=== PATIENT | male | born 1960 | race Caucasian/White ===

== ENCOUNTER 2020-12-16 16:38 | Inpatient (IN) | payer SELFPAY ==
[~2020-12-16] VITALS: Ht 172.7 cm; Wt 62.6 kg
[2020-12-16] MEDS ORDERED: SODIUM CHLORIDE 0.9% 1000ML 2,000 ML IV ONE (17:02)
[2020-12-16] MEDS ORDERED: INSULIN HUMULIN R 100 UNIT/ML 3ML ONE ×2 (17:04→17:49)
[2020-12-16 17:05] LABS: BASOPHILS % (AUTO) 0.7 % (0.0-5.0); EOSINOPHILS % (AUTO) 0.2 % (0.0-8.0); HEMATOCRIT 49.7 % (42-54); LYMPHOCYTES % (AUTO) 6.3 % (21.0-51.0); MEAN CORPUSCULAR HEMOGLOBIN 31.2 pg (27.0-33.0); MEAN CORPUSCULAR HGB CONC 32.6 g/dL (32.0-36.0); MEAN CORPUSCULAR VOLUME 95.8 fL (79-99); MONOCYTES % (AUTO) 7.3 % (3.0-13.0); NEUTROPHILS % (AUTO) 80.2 % (40.0-77.0); PLATELET COUNT (AUTO) 416 K/uL (130-400); RED BLOOD CELL COUNT(AUTO) 5.19 MIL/uL (4.50-6.20); RED CELL DISTRIBUTION WIDTH 12.7 % (11.0-15.5); WHITE BLOOD COUNT (AUTO) 22.8 K/uL (4.8-10.8)
[2020-12-16 17:14] LABS: ABG BASE EXCESS -31.1 mmol/L (-2.0-3.0); ABG HCO3 1.4 mmol/L (21.0-28.0); ABG OXYGEN SATURATION 96.8 % (95.0-99.0); ABG PCO2 < 15 mmHg (35-48)
[2020-12-16 17:20] LABS: CHLORIDE 96 mmol/L (101-111); CREATININE 1.6 mg/dL (0.5-1.5); GLOMERULAR FILTR. RATE CALC 47 mL/min (>60); GLUCOSE,RANDOM 324 mg/dL (70-105); POTASSIUM 4.4 mmol/L (3.5-5.1); SODIUM SERUM 135 mmol/L (136-145); UREA NITROGEN, BLOOD 27 mg/dL (7-18)
[2020-12-16 17:25] LABS: ALANINE AMINOTRANSFERASE 24 U/L (12-78); ALBUMIN 3.9 g/dL (3.5-5.0); ASPARTATE AMINOTRANSFERASE 19 U/L (10-37); BILIRUBIN,TOTAL 0.5 mg/dL (0.2-1.0); TOTAL PROTEIN, SERUM 7.9 g/dL (6.0-8.3)
[2020-12-16 17:41] LABS: CARBON DIOXIDE < 5 mmol/L (21-32)
[2020-12-16] MEDS ORDERED: DEXTROSE 10%-WATER 1,000 ML IV ONE (17:47)
[2020-12-16] MEDS ORDERED: SODIUM BICARB 8.4% 50ML SYRINGE IVP STA (18:22)
[2020-12-16] MEDS ORDERED: SODIUM CHLORIDE 0.9% 1000ML 1,000 ML IV SCH ×2 (18:30)
[2020-12-16] MEDS ORDERED: DEXTROSE 5 %-0.45 % NACL 1,000 ML IV PRN (18:30)
[2020-12-16] MEDS ORDERED: NITROGLYCERIN 0.4 MG SL TAB SL PRN (18:30)
[2020-12-16] MEDS ORDERED: INSULIN HUMULIN R 100 UNIT/ML 3ML IV SCH ×2 (18:30→18:39)
[2020-12-16] MEDS ORDERED: POTASSIUM CHLORIDE 10MEQ/100ML 100 ML IV PRN (18:30)
[2020-12-16] MEDS ORDERED: ACETAMINOPHEN 325 MG TAB PO PRN ×2 (18:30)
[2020-12-16] MEDS ORDERED: ONDANSETRON HCL 4 MG/2 ML VIAL IV PRN (18:30)
[2020-12-16] MEDS ORDERED: SODIUM BICARB 8.4% 50ML SYRINGE IVP SCH ×3 (18:30→20:45)
[2020-12-16] MEDS ORDERED: SODIUM BICARB 50MEQ 50ML VIAL 100 ML ONE ×2 (18:33→22:51)
[2020-12-16 18:46] LABS: HEMOGLOBIN A1C 10.9 % (4.0-6.0)
[2020-12-16] MEDS ORDERED: LABETALOL HCL 5 MG/ML 20ML VIAL IV PRN (19:00)
[2020-12-16] MEDS ORDERED: LABETALOL 20 MG/4 ML DISP.SYRIN IV PRN (19:45)
[2020-12-16 20:23] LABS: CREATININE 1.3 mg/dL (0.5-1.5); POTASSIUM 5.2 mmol/L (3.5-5.1)
[2020-12-16 20:31] LABS: CRP QUANTITATIVE < 2.00 mg/L (0.00-9.0)
[2020-12-16] MEDS ORDERED: SODIUM CHLORIDE 0.9% 1000ML 1,000 ML IV ONE ×2 (20:31)
[2020-12-16 20:38] LABS: APPEARANCE,URINE Clear (CLEAR); BILIRUBIN,URINE Negative (NEGATIVE); COLOR,URINE Yellow (YELLOW); GLUCOSE, URINE (UA) >=1000 mg/dL (NEGATIVE); KETONES,URINE >=160 mg/dL (NEGATIVE); LEUKOCYTE ESTERASE ,URINE Negative (NEGATIVE); NITRATE,URINE Negative (NEGATIVE); OCCULT BLOOD,URINE Small (NEGATIVE); PROTEIN,URINE POS 1+ mg/dL (NEGATIVE); UROBILINOGEN,URINE 0.2 mg/dL (0.2-1.0)
[2020-12-16 20:46] LABS: BACTERIA,URINE Rare /HPF (None Seen); RBC,URINE 0-1 /HPF (0-1); SQUAMOUS EPITHELIAL CELL,UR Rare /HPF (0-2); WBC,URINE 0-1 /HPF (0-1)
[2020-12-16 20:47] LABS: AMPHET/METH SCREEN,URINE NEGATIVE (NEGATIVE); BARBITURATE SCREEN, URINE NEGATIVE (NEGATIVE); BENZODIAZEPINES SCREEN,URINE NEGATIVE (NEGATIVE); CANNABINOID SCREEN,URINE NEGATIVE (NEGATIVE); COCAINE SCREEN,URINE NEGATIVE (NEGATIVE); OPIATE SCREEN,URINE NEGATIVE (NEGATIVE); PHENCYCLIDINE SCREEN,URINE NEGATIVE (NEGATIVE)
[2020-12-16 20:55] LABS: CREATINE KINASE, TOTAL 138 U/L (21-232); MYOGLOBIN 112 ng/mL (10-92); TROPONIN I < 0.04 ng/mL (0.00-0.06)
[2020-12-16] MEDS: HEPARIN SODIUM 5000UNIT/ML 1ML VIAL SQ SCH (21:00)
[2020-12-16] MEDS: FAMOTIDINE/PF 20 MG/2 ML VIAL IV SCH (21:00)
[2020-12-16] MEDS ORDERED: CALCIUM GLUCONATE 1 GM in SODIUM CHLORIDE 0.9% 50 ML IV ONE (21:27)
[2020-12-16] MEDS ORDERED: ACETAMINOPHEN 325 MG TAB ONE (21:34)
[2020-12-17] MEDS ORDERED: DEXTROSE 5 % AND 0.9 % NACL 1,000 ML IV ONE (00:30)
[2020-12-17 01:21] LABS: BASOPHILS % (AUTO) 0.3 % (0.0-5.0); HEMATOCRIT 45.4 % (42-54); LYMPHOCYTES % (AUTO) 5.4 % (21.0-51.0); MEAN CORPUSCULAR HEMOGLOBIN 31.7 pg (27.0-33.0); MEAN CORPUSCULAR HGB CONC 35.2 g/dL (32.0-36.0); MEAN CORPUSCULAR VOLUME 90.1 fL (79-99); MONOCYTES % (AUTO) 6.3 % (3.0-13.0); NEUTROPHILS % (AUTO) 84.6 % (40.0-77.0); PLATELET COUNT (AUTO) 278 K/uL (130-400); RED BLOOD CELL COUNT(AUTO) 5.04 MIL/uL (4.50-6.20); RED CELL DISTRIBUTION WIDTH 12.6 % (11.0-15.5)
[2020-12-17 01:29] LABS: CREATININE 1.3 mg/dL (0.5-1.5); MAGNESIUM 1.6 mg/dL (1.80-2.40); POTASSIUM 4.2 mmol/L (3.5-5.1)
[2020-12-17 01:55] LABS: ABG BASE EXCESS -18.9 mmol/L (-2.0-3.0); ABG HCO3 5.2 mmol/L (21.0-28.0); ABG OXYGEN SATURATION 98.5 % (95.0-99.0); ABG PCO2 < 15 mmHg (35-48)
[2020-12-17] MEDS ORDERED: SODIUM BICARB 8.4% 50ML SYRING 150 MEQ in DEXTROSE 5%-WATER 1,000 ML IVP SCH (02:00)
[2020-12-17] MEDS ORDERED: CALCIUM GLUCONATE 1 GM in SODIUM CHLORIDE 0.9% 100 ML IV ONE (02:00)
[2020-12-17] MEDS ORDERED: MAGNESIUM 2GM PREMIX 50ML 50 ML IV SCH (02:00)
[2020-12-17] MEDS ORDERED: DEXTROSE IV SCH (02:15)
[2020-12-17] MEDS ORDERED: SODIUM BICARB IV SCH (02:15)
[2020-12-17] MEDS ORDERED: NACL IV SCH (02:15)
[2020-12-17] MEDS ORDERED: CALCIUM GLUCONATE 1 GM/10 ML VIAL IV ONE (02:23)
[2020-12-17] MEDS ORDERED: MAGNESIUM 2GM PREMIX 50ML 50 ML IV ONE (02:23)
[2020-12-17] MEDS ORDERED: DEXTROSE 5%-WATER 1,000 ML IV ONE ×2 (02:24→10:49)
[2020-12-17] MEDS ORDERED: SODIUM BICARB 50MEQ 50ML VIAL 150 ML ONE (02:25)
[2020-12-17] MEDS ORDERED: SODIUM CHLORIDE 0.9% 100 ML IV ONE (02:26)
[2020-12-17] MEDS ORDERED: ONDANSETRON HCL 4 MG/2 ML VIAL ONE (04:01)
[2020-12-17 04:46] LABS: ABG BASE EXCESS -17.3 mmol/L (-2.0-3.0); ABG HCO3 6.7 mmol/L (21.0-28.0); ABG OXYGEN SATURATION 98.5 % (95.0-99.0); ABG PCO2 < 15 mmHg (35-48)
[2020-12-17 06:42] LABS: BASOPHILS % (AUTO) 0.3 % (0.0-5.0); HEMATOCRIT 38.6 % (42-54); LYMPHOCYTES % (AUTO) 6.4 % (21.0-51.0); MEAN CORPUSCULAR HEMOGLOBIN 31.7 pg (27.0-33.0); MEAN CORPUSCULAR HGB CONC 35.2 g/dL (32.0-36.0); MONOCYTES % (AUTO) 8.6 % (3.0-13.0); NEUTROPHILS % (AUTO) 82.5 % (40.0-77.0); PLATELET COUNT (AUTO) 280 K/uL (130-400); RED BLOOD CELL COUNT(AUTO) 4.29 MIL/uL (4.50-6.20); RED CELL DISTRIBUTION WIDTH 12.8 % (11.0-15.5); WHITE BLOOD COUNT (AUTO) 15.7 K/uL (4.8-10.8)
[2020-12-17 07:06] LABS: BILIRUBIN,TOTAL 0.6 mg/dL (0.2-1.0); CREATININE 1.2 mg/dL (0.5-1.5); MAGNESIUM 3.4 mg/dL (1.80-2.40); POTASSIUM 3.6 mmol/L (3.5-5.1); TOTAL PROTEIN, SERUM 6.1 g/dL (6.0-8.3)
[2020-12-17] MEDS ORDERED: HEPARIN SODIUM 5000UNIT/ML 1ML VIAL ONE (08:54)
[2020-12-17] MEDS ORDERED: FAMOTIDINE/PF 20 MG/2 ML VIAL IV ONE (08:55)
[2020-12-17 08:58] LABS: ABG BASE EXCESS -11.5 mmol/L (-2.0-3.0); ABG HCO3 11.2 mmol/L (21.0-28.0); ABG OXYGEN SATURATION 99.1 % (95.0-99.0); ABG PCO2 20 mmHg (35-48)
[2020-12-17] MEDS: HEPARIN SODIUM 5000UNIT/ML 1ML VIAL SQ SCH ×3 (09:00→21:12)
[2020-12-17] MEDS: FAMOTIDINE/PF 20 MG/2 ML VIAL IV SCH ×2 (09:00→21:10)
[2020-12-17 10:11] LABS: CREATININE 1.3 mg/dL (0.5-1.5); MAGNESIUM 2.3 mg/dL (1.80-2.40); POTASSIUM 3.3 mmol/L (3.5-5.1)
[2020-12-17] MEDS ORDERED: SODIUM BICARB 50MEQ 50ML VIAL 50 ML ONE (10:44)
[2020-12-17] MEDS: POTASSIUM CHLORIDE 20 MEQ ERTAB PO SCH (16:23)
[2020-12-17] MEDS ORDERED: POTASSIUM CHLORIDE 10% ELIXIR 20 MEQ/15 ML UDCUP ONE (16:27)
[2020-12-17] MEDS: DEXTROSE 5%-LACTATED RINGERS 1,000 ML IV SCH ×2 (16:30→23:39)
[2020-12-17 16:54] LABS: CREATININE 1.1 mg/dL (0.5-1.5); POTASSIUM 3.1 mmol/L (3.5-5.1)
[2020-12-17 19:00] VITALS: BP 112/71
[2020-12-17 20:00] VITALS: BP 100/66
[2020-12-17] MEDS ORDERED: PHARMACY COMMUNICATION MISC SCH (20:00)
[2020-12-17] MEDS ORDERED: LIDOCAINE HCL-MPF 1% 2ML VIAL IV PRN (20:45)
[2020-12-17] MEDS ORDERED: INSULIN REGULAR, HUMAN 3ML 100 UNIT in SODIUM CHLORIDE 0.9% 99 ML IV SCH ×2 (20:45)
[2020-12-17 21:00] VITALS: BP 100/64
[2020-12-17 22:00] VITALS: BP 103/59
[2020-12-17 22:02] LABS: CREATININE 1.1 mg/dL (0.5-1.5); MAGNESIUM 2.1 mg/dL (1.80-2.40); POTASSIUM 3.4 mmol/L (3.5-5.1)
[2020-12-17 23:00] VITALS: BP 92/61
[2020-12-18] VITALS (15 sets, daily range): BP systolic 90–105; BP diastolic 49–71
[2020-12-18 04:00] LABS: BASOPHILS % (AUTO) 0.3 % (0.0-5.0); EOSINOPHILS % (AUTO) 0.7 % (0.0-8.0); MEAN CORPUSCULAR HEMOGLOBIN 30.7 pg (27.0-33.0); MEAN CORPUSCULAR HGB CONC 34.9 g/dL (32.0-36.0); MEAN CORPUSCULAR VOLUME 87.9 fL (79-99); MONOCYTES % (AUTO) 9.8 % (3.0-13.0); NEUTROPHILS % (AUTO) 71.3 % (40.0-77.0); PLATELET COUNT (AUTO) 216 K/uL (130-400); RED BLOOD CELL COUNT(AUTO) 3.98 MIL/uL (4.50-6.20); RED CELL DISTRIBUTION WIDTH 12.8 % (11.0-15.5); WHITE BLOOD COUNT (AUTO) 6.8 K/uL (4.8-10.8)
[2020-12-18 04:07] LABS: ALBUMIN 2.5 g/dL (3.5-5.0); BILIRUBIN,TOTAL 0.6 mg/dL (0.2-1.0); POTASSIUM 3.4 mmol/L (3.5-5.1); TOTAL PROTEIN, SERUM 5.4 g/dL (6.0-8.3)
[2020-12-18] MEDS: DEXTROSE 5%-LACTATED RINGERS 1,000 ML IV SCH (06:48)
[2020-12-18 07:02] LABS: ABG BASE EXCESS -4.7 mmol/L (-2.0-3.0); ABG HCO3 18.9 mmol/L (21.0-28.0); ABG OXYGEN SATURATION 96.9 % (95.0-99.0); ABG PCO2 31 mmHg (35-48)
[2020-12-18] MEDS ORDERED: ATOR20TA65 PO (08:52)
[2020-12-18] MEDS ORDERED: GLIM4TAB36 PO (08:52)
[2020-12-18] MEDS ORDERED: METF-446 PO (08:52)
[2020-12-18] MEDS ORDERED: POTASSIUM CHLORIDE 20 MEQ ERTAB PO SCH (09:00)
[2020-12-18] MEDS: FAMOTIDINE/PF 20 MG/2 ML VIAL IV SCH (09:00)
[2020-12-18] MEDS: HEPARIN SODIUM 5000UNIT/ML 1ML VIAL SQ SCH (09:01)
[2020-12-18 09:39] LABS: CREATININE 0.9 mg/dL (0.5-1.5); POTASSIUM 3.1 mmol/L (3.5-5.1)
[2020-12-18] MEDS: INSULIN LISPRO 100 UNIT/ML 3ML SQ SCH ×5 (11:30→21:30)
[2020-12-18] MEDS: POTASSIUM CHLORIDE 20 MEQ ERTAB PO SCH (13:58)
[2020-12-18] MEDS ORDERED: INSULIN GLARGINE 100 UNITS/ML 10 ML VIAL SQ SCH (21:00)
[2020-12-18] MEDS: FAMOTIDINE 20MG TAB 20 MG TAB PO SCH (21:27)
[2020-12-19 04:01] VITALS: BP 99/65
[2020-12-19 05:35] LABS: BASOPHILS % (AUTO) 0.2 % (0.0-5.0); EOSINOPHILS % (AUTO) 2.2 % (0.0-8.0); HEMATOCRIT 35.2 % (42-54); MEAN CORPUSCULAR HEMOGLOBIN 30.3 pg (27.0-33.0); MEAN CORPUSCULAR HGB CONC 34.1 g/dL (32.0-36.0); MEAN CORPUSCULAR VOLUME 88.9 fL (79-99); MONOCYTES % (AUTO) 12.3 % (3.0-13.0); NEUTROPHILS % (AUTO) 46.6 % (40.0-77.0); PLATELET COUNT (AUTO) 196 K/uL (130-400); RED BLOOD CELL COUNT(AUTO) 3.96 MIL/uL (4.50-6.20); RED CELL DISTRIBUTION WIDTH 12.9 % (11.0-15.5); WHITE BLOOD COUNT (AUTO) 4.1 K/uL (4.8-10.8)
[2020-12-19] MEDS: INSULIN LISPRO 100 UNIT/ML 3ML SQ SCH ×6 (05:45→21:32)
[2020-12-19 05:47] LABS: CREATININE 0.8 mg/dL (0.5-1.5); PHOSPHORUS 2.4 mg/dL (2.5-4.9); POTASSIUM 3.5 mmol/L (3.5-5.1)
[2020-12-19 07:30] VITALS: BP 106/80
[2020-12-19] MEDS: ENOXAPARIN SODIUM 40 MG/0.4 ML SYRINGE SQ SCH (10:58)
[2020-12-19] MEDS: FAMOTIDINE 20MG TAB 20 MG TAB PO SCH ×2 (10:59→21:36)
[2020-12-19 11:30] VITALS: BP 107/71
[2020-12-19 16:00] VITALS: BP 108/73
[2020-12-19] MEDS: POTASSIUM CHLORIDE 20 MEQ ERTAB PO SCH (16:16)
[2020-12-19] MEDS ORDERED: SENNOSIDES 8.6 MG TABLET PO SCH (18:45)
[2020-12-19] MEDS ORDERED: POLYETHYLENE GLYCOL 3350 17 GM POWD.PACK PO SCH (18:45)
[2020-12-19 20:18] VITALS: BP 102/71
[2020-12-19] MEDS ORDERED: INSULIN GLARGINE 100 UNITS/ML 10 ML VIAL SQ SCH ×2 (21:00)
[2020-12-19 23:15] VITALS: BP 108/72
[2020-12-20 04:33] VITALS: BP 93/62
[2020-12-20 06:12] LABS: BASOPHILS % (AUTO) 0.3 % (0.0-5.0); HEMATOCRIT 35.4 % (42-54); LYMPHOCYTES % (AUTO) 40.7 % (21.0-51.0); MEAN CORPUSCULAR HEMOGLOBIN 30.6 pg (27.0-33.0); MEAN CORPUSCULAR HGB CONC 34.2 g/dL (32.0-36.0); MEAN CORPUSCULAR VOLUME 89.4 fL (79-99); MONOCYTES % (AUTO) 11.7 % (3.0-13.0); PLATELET COUNT (AUTO) 196 K/uL (130-400); RED BLOOD CELL COUNT(AUTO) 3.96 MIL/uL (4.50-6.20); RED CELL DISTRIBUTION WIDTH 12.8 % (11.0-15.5)
[2020-12-20 06:15] LABS: POTASSIUM 3.8 mmol/L (3.5-5.1)
[2020-12-20 06:16] LABS: CREATININE 0.6 mg/dL (0.5-1.5); MAGNESIUM 1.9 mg/dL (1.80-2.40)
[2020-12-20] MEDS: INSULIN LISPRO 100 UNIT/ML 3ML SQ SCH ×4 (06:26→13:07)
[2020-12-20] MEDS ORDERED: INSULIN LISPRO 100 UNIT/ML 3ML SQ SCH (07:30)
[2020-12-20 08:09] LABS: EOSINOPHILS % (MANUAL) 3 % (1-6); LYMPHOCYTES % (MANUAL) 47 % (22-44); MAN.DIFF COMMENT-IMPRESSION MANUAL DIFFERENTIAL; MONOCYTES % (MANUAL) 6 % (2-9); PLATELET MORPHOLOGY COMMENT ADEQUATE; REACTIVE LYMPHOCYTES 2 % (0-0); SEGMENTED NEUTROPHILS % 42 % (40-70)
[2020-12-20 08:56] VITALS: BP 111/77
[2020-12-20] MEDS ORDERED: SENNOSIDES 8.6 MG TABLET PO SCH (09:00)
[2020-12-20] MEDS: FAMOTIDINE 20MG TAB 20 MG TAB PO SCH (10:23)
[2020-12-20] MEDS: ENOXAPARIN SODIUM 40 MG/0.4 ML SYRINGE SQ SCH (10:24)
[2020-12-20 11:55] VITALS: BP 110/81
== END 2020-12-20 14:00 | disposition home or self-care (01) | DRG 638 ==
LOC: EDH 16:38 → EDHIP 16:39 → 2CH 12-17 18:41 → 3DH 12-18 10:10
PROVIDERS: ADMIT Internal Medicine; ATTEND Internal Medicine
DX: E11.10 Type 2 diabetes mellitus with ketoacidosis without coma (principal); E87.1 Hypo-osmolality and hyponatremia; N17.9 Acute kidney failure, unspecified; R65.10 Systemic inflammatory response syndrome (SIRS) of non-infectious origin without acute organ dysfunction; E83.42 Hypomagnesemia; E86.0 Dehydration; E87.6 Hypokalemia; Z80.8 Family history of malignant neoplasm of other organs or systems; Z79.4 Long term (current) use of insulin; Z83.3 Family history of diabetes mellitus; R06.82 Tachypnea, not elsewhere classified; Z90.49 Acquired absence of other specified parts of digestive tract; Z20.822 Contact with and (suspected) exposure to COVID-19
CPT/HCPCS: 36415; 36600; 71045; 74176; 80048; 80053; 80305; 81001; 82010; 82330; 82435; 82550; 82803; 82947; 82948; 83036; 83605; 83735; 83874; 83930; 84100; 84132; 84145; 84295; 84484; 85018; 85025; 85651; 86140; 87040; 87426; 87635; 93005; G0378; J0610; J1644; J1650; J1815; J2405; J3475; J3490; J7030; J7042; J7070

== ENCOUNTER 2021-03-14 23:46 | Inpatient (IN) | payer SELFPAY ==
[~2021-03-14] VITALS: Ht 172.7 cm; Wt 72.6 kg
[~2021-03-14 23:46] MED LIST: ATOR20TA65 PO; GLIM4TAB36 PO; METF-446 PO
[2021-03-15] VITALS (11 sets, daily range): BP systolic 68–140; BP diastolic 35–93
[2021-03-15] MEDS ORDERED: ONDANSETRON 4MG INJ ONE (03:01)
[2021-03-15] MEDS ORDERED: 0.9%NACL 1000ML 2,000 ML IV ONE (03:01)
[2021-03-15 03:19] LABS: BASOPHILS % (AUTO) 0.4 % (0.0-5.0); EOSINOPHILS % (AUTO) 3.3 % (0.0-8.0); HEMATOCRIT 48.4 % (42-54); MEAN CORPUSCULAR HGB CONC 34.3 g/dL (32.0-36.0); MEAN CORPUSCULAR VOLUME 87.5 fL (79-99); MONOCYTES % (AUTO) 15.3 % (3.0-13.0); NEUTROPHILS % (AUTO) 78.5 % (40.0-77.0); PLATELET COUNT (AUTO) 303 K/uL (130-400); RED BLOOD CELL COUNT(AUTO) 5.53 MIL/uL (4.50-6.20); RED CELL DISTRIBUTION WIDTH 12.5 % (11.0-15.5); WHITE BLOOD COUNT (AUTO) 8.1 K/uL (4.8-10.8)
[2021-03-15 03:37] LABS: INR 0.97 (0.85-1.15); PROTHROMBIN TIME 10.6 SEC (9.6-11.6)
[2021-03-15 03:38] LABS: PARTIAL THROMBOPLASTIN TIME 32.2 SEC (26.3-35.5)
[2021-03-15 03:39] LABS: ALBUMIN 3.8 g/dL (3.5-5.0); BILIRUBIN,TOTAL 0.7 mg/dL (0.2-1.0); CREATININE 2.5 mg/dL (0.5-1.5); TOTAL PROTEIN, SERUM 7.8 g/dL (6.0-8.3)
[2021-03-15 04:09] LABS: POTASSIUM 6.1 mmol/L (3.5-5.1)
[2021-03-15] MEDS ORDERED: INSULIN HUMULIN R 100 UNIT/ML 3ML ONE (04:14)
[2021-03-15] MEDS ORDERED: 0.9%NACL 100ML 100 ML ONE (04:14)
[2021-03-15 04:48] LABS: ABG BASE EXCESS -20.9 mmol/L (-2.0-3.0); ABG HCO3 4.9 mmol/L (21.0-28.0); ABG OXYGEN SATURATION 97.2 % (95.0-99.0); ABG PCO2 14 mmHg (35-48)
[2021-03-15 05:44] LABS: APPEARANCE,URINE CLEAR (CLEAR); BILIRUBIN,URINE SMALL (NEGATIVE); COLOR,URINE YELLOW (YELLOW); GLUCOSE, URINE (UA) >=1000 mg/dL (NEGATIVE); KETONES,URINE >=80 mg/dL (NEGATIVE); LEUKOCYTE ESTERASE ,URINE NEGATIVE (NEGATIVE); NITRATE,URINE NEGATIVE (NEGATIVE); OCCULT BLOOD,URINE SMALL (NEGATIVE); PROTEIN,URINE TRACE mg/dL (NEGATIVE); UROBILINOGEN,URINE 0.2 mg/dL (0.2-1.0)
[2021-03-15 06:00] LABS: BACTERIA,URINE Few /HPF (None Seen); HYALINE CASTS, URINE 0-1 /LPF (0-1 /LPF); SQUAMOUS EPITHELIAL CELL,UR 0-2 /HPF (0-2); WBC,URINE None Seen /HPF (0-1)
[2021-03-15] MEDS ORDERED: INSULIN REGULAR, HUMAN 3ML 100 UNIT in 0.9%NACL 100ML 99 ML IV PRN ×4 (07:00→08:30)
[2021-03-15] MEDS ORDERED: 0.9%NACL 1000ML 1,000 ML IV SCH (08:30)
[2021-03-15] MEDS: PANTOPRAZOLE 40 MG/VIAL IVP SCH (09:03)
[2021-03-15] MEDS: ENOXAPARIN SODIUM 30 MG/0.3 ML SQ SCH (09:04)
[2021-03-15] MEDS ORDERED: DEXTROSE 5 % AND 0.9 % NACL 1,000 ML IV ONE (13:49)
[2021-03-15 14:21] LABS: CREATININE 1.4 mg/dL (0.5-1.5); POTASSIUM 4.2 mmol/L (3.5-5.1)
[2021-03-15] MEDS ORDERED: PHARMACY COMMUNICATION MISC SCH (14:30)
[2021-03-15] MEDS: DEXTROSE 5 % AND 0.9 % NACL 1,000 ML IV SCH ×2 (15:59→21:21)
[2021-03-15 19:05] LABS: CREATININE 1.3 mg/dL (0.5-1.5); POTASSIUM 3.7 mmol/L (3.5-5.1)
[2021-03-15] MEDS ORDERED: ACETAMINOPHEN 325 MG TAB ONE (23:15)
[2021-03-15] MEDS ORDERED: ACETAMINOPHEN 325 MG TAB PO PRN (23:30)
[2021-03-15] MEDS: ONDANSETRON 4MG INJ IVP PRN (23:57)
[2021-03-16] VITALS (23 sets, daily range): BP systolic 96–145; BP diastolic 47–84
[2021-03-16 01:33] LABS: CREATININE 1.1 mg/dL (0.5-1.5); POTASSIUM 3.4 mmol/L (3.5-5.1)
[2021-03-16] MEDS ORDERED: LIDOCAINE HCL-MPF 1% 2ML VIAL ONE (01:52)
[2021-03-16] MEDS ORDERED: POTASSIUM CHLORIDE 20MEQ/100ML 100 ML IV ONE (01:53)
[2021-03-16] MEDS ORDERED: MAGNESIUM 2GM PREMIX 50ML 50 ML IV PRN (02:00)
[2021-03-16] MEDS: DEXTROSE 5 % AND 0.9 % NACL 1,000 ML IV SCH ×3 (04:13→15:42)
[2021-03-16] MEDS ORDERED: INSULIN HUMULIN R 100 UNIT/ML 3ML SQ SCH (06:00)
[2021-03-16 07:39] LABS: HEMOGLOBIN A1C 11.4 % (4.0-6.0)
[2021-03-16 08:55] LABS: POTASSIUM 3.4 mmol/L (3.5-5.1)
[2021-03-16] MEDS: PANTOPRAZOLE 40 MG/VIAL IVP SCH (09:57)
[2021-03-16] MEDS: ENOXAPARIN SODIUM 30 MG/0.3 ML SQ SCH (10:05)
[2021-03-16] MEDS: ONDANSETRON 4MG INJ IVP PRN (11:13)
[2021-03-16 11:49] LABS: CREATININE 0.9 mg/dL (0.5-1.5)
[2021-03-16 11:51] LABS: POTASSIUM 2.6 mmol/L (3.5-5.1)
[2021-03-16] MEDS: POTASSIUM CHLORIDE 20MEQ/100ML 100 ML IV PRN ×2 (12:24→15:42)
[2021-03-16] MEDS ORDERED: INSULIN HUMULIN 70/30 100 UNIT/ML 3ML SQ SCH (15:00)
[2021-03-16 16:05] LABS: CREATININE 0.8 mg/dL (0.5-1.5); POTASSIUM 3.2 mmol/L (3.5-5.1)
[2021-03-16] MEDS: INSULIN HUMULIN R 100 UNIT/ML 3ML SQ SCH ×2 (16:30→21:39)
[2021-03-17] VITALS (11 sets, daily range): BP systolic 102–152; BP diastolic 46–85
[2021-03-17] MEDS: LIDOCAINE HCL-MPF 1% 2ML VIAL IV PRN ×2 (00:23→02:18)
[2021-03-17] MEDS: POTASSIUM CHLORIDE 20MEQ/100ML 100 ML IV PRN ×2 (00:23→02:18)
[2021-03-17] MEDS: DEXTROSE 5 % AND 0.9 % NACL 1,000 ML IV SCH ×2 (00:39→06:30)
[2021-03-17] MEDS: INSULIN HUMULIN R 100 UNIT/ML 3ML SQ SCH ×4 (06:14→22:07)
[2021-03-17 06:16] LABS: HEMATOCRIT 35.7 % (42-54); MEAN CORPUSCULAR HEMOGLOBIN 29.9 pg (27.0-33.0); MEAN CORPUSCULAR HGB CONC 35.3 g/dL (32.0-36.0); MEAN CORPUSCULAR VOLUME 84.6 fL (79-99); PLATELET COUNT (AUTO) 191 K/uL (130-400); RED BLOOD CELL COUNT(AUTO) 4.22 MIL/uL (4.50-6.20); RED CELL DISTRIBUTION WIDTH 12.7 % (11.0-15.5); WHITE BLOOD COUNT (AUTO) 4.4 K/uL (4.8-10.8)
[2021-03-17 06:28] LABS: CREATININE 0.8 mg/dL (0.5-1.5); MAGNESIUM 1.9 mg/dL (1.80-2.40); POTASSIUM 3.5 mmol/L (3.5-5.1)
[2021-03-17 06:55] LABS: EOSINOPHILS % (MANUAL) 2 % (1-6); LYMPHOCYTES % (MANUAL) 31 % (22-44); MAN.DIFF COMMENT-IMPRESSION MANUAL DIFFERENTIAL; MONOCYTES % (MANUAL) 6 % (2-9); PLATELET MORPHOLOGY COMMENT ADEQUATE; SEGMENTED NEUTROPHILS % 61 % (40-70)
[2021-03-17] MEDS ORDERED: PANTOPRAZOLE 40 MG TAB DR ONE (08:53)
[2021-03-17] MEDS: ENOXAPARIN SODIUM 30 MG/0.3 ML SQ SCH (09:00)
[2021-03-17] MEDS: PANTOPRAZOLE 40 MG TAB DR PO SCH (09:02)
[2021-03-17] MEDS ORDERED: INSULIN HUMULIN 70/30 100 UNIT/ML 3ML SQ SCH ×2 (14:00→21:00)
[2021-03-17 16:04] LABS: CREATININE 0.8 mg/dL (0.5-1.5); POTASSIUM 3.1 mmol/L (3.5-5.1)
[2021-03-17] MEDS: INSULIN GLARGINE 100 UNITS/ML 10 ML VIAL SQ SCH (22:05)
[2021-03-18] VITALS (7 sets, daily range): BP systolic 118–152; BP diastolic 78–83
[2021-03-18] MEDS ORDERED: INSULIN GLARGINE 100 UNITS/ML 10 ML VIAL SQ SCH (07:00)
[2021-03-18] MEDS ORDERED: INSULIN HUMULIN 70/30 100 UNIT/ML 3ML SQ SCH (07:30)
[2021-03-18] MEDS: INSULIN HUMULIN R 100 UNIT/ML 3ML SQ SCH ×6 (08:06→20:29)
[2021-03-18] MEDS: ENOXAPARIN SODIUM 30 MG/0.3 ML SQ SCH (08:10)
[2021-03-18] MEDS: PANTOPRAZOLE 40 MG TAB DR PO SCH (08:11)
[2021-03-18 14:27] LABS: CREATININE 0.9 mg/dL (0.5-1.5); MAGNESIUM 1.7 mg/dL (1.80-2.40); POTASSIUM 3.1 mmol/L (3.5-5.1)
[2021-03-18] MEDS ORDERED: INSULIN HUMULIN R 100 UNIT/ML 3ML SQ SCH (17:30)
[2021-03-18] MEDS: INSULIN GLARGINE 100 UNITS/ML 10 ML VIAL SQ SCH (20:30)
[2021-03-18] MEDS: KCL 20 MEQ ERTAB PO PRN ×2 (21:45→23:46)
[2021-03-19 04:33] VITALS: BP 126/81
[2021-03-19 05:47] LABS: MEAN CORPUSCULAR HEMOGLOBIN 29.4 pg (27.0-33.0); MEAN CORPUSCULAR HGB CONC 34.3 g/dL (32.0-36.0); MEAN CORPUSCULAR VOLUME 85.6 fL (79-99); RED BLOOD CELL COUNT(AUTO) 4.32 MIL/uL (4.50-6.20); WHITE BLOOD COUNT (AUTO) 5.3 K/uL (4.8-10.8)
[2021-03-19 05:59] LABS: CREATININE 0.8 mg/dL (0.5-1.5); MAGNESIUM 1.9 mg/dL (1.80-2.40); POTASSIUM 3.7 mmol/L (3.5-5.1)
[2021-03-19] MEDS: INSULIN HUMULIN R 100 UNIT/ML 3ML SQ SCH ×2 (06:42→12:27)
[2021-03-19] MEDS: PANTOPRAZOLE 40 MG TAB DR PO SCH (06:44)
[2021-03-19] MEDS ORDERED: INSULIN GLARGINE 100 UNITS/ML 10 ML VIAL SQ SCH (07:00)
[2021-03-19] MEDS ORDERED: INSULIN HUMULIN R 100 UNIT/ML 3ML SQ SCH (07:30)
[2021-03-19] MEDS: ENOXAPARIN SODIUM 30 MG/0.3 ML SQ SCH (08:04)
[2021-03-19 08:07] VITALS: BP 124/83
[2021-03-19] MEDS ORDERED: INSU10VI3 SQ (14:04)
== END 2021-03-19 16:32 | disposition home or self-care (01) | DRG 638 ==
LOC: EDH 23:46 → EDHIP 03-15 04:34 → 2CH 03-15 23:47 → 3AH 03-18 11:46
PROVIDERS: ADMIT Internal Medicine Nephrology; ATTEND Internal Medicine Nephrology
DX: E10.10 Type 1 diabetes mellitus with ketoacidosis without coma (principal); E87.1 Hypo-osmolality and hyponatremia; N17.9 Acute kidney failure, unspecified; E87.5 Hyperkalemia; N18.9 Chronic kidney disease, unspecified; E10.22 Type 1 diabetes mellitus with diabetic chronic kidney disease; E78.5 Hyperlipidemia, unspecified; E86.0 Dehydration; Z20.822 Contact with and (suspected) exposure to COVID-19; E86.1 Hypovolemia; Z79.4 Long term (current) use of insulin; Z80.8 Family history of malignant neoplasm of other organs or systems; Z83.3 Family history of diabetes mellitus
CPT/HCPCS: 36415; 36600; 71045; 80048; 80053; 81001; 82010; 82550; 82803; 82947; 82948; 83036; 83605; 83735; 84132; 84145; 84484; 85025; 85027; 85610; 85730; 87635; 93005; 99291; C9113; C9803; G0378; J1650; J1815; J2405; J3475; J3480; J3490; J7030; J7042

== ENCOUNTER 2023-12-18 16:15 | Inpatient (IN) | payer OTHER ==
[~2023-12-18] VITALS: Ht 172.7 cm; Wt 70.3 kg
[~2023-12-18 16:15] MED LIST changes: +INSU10VI3 SQ
[2023-12-18 16:53] LABS: BASOPHILS # (AUTO) 0.03 K/uL (0.00-0.20); BASOPHILS % (AUTO) 0.2 % (0.0-5.0); HEMATOCRIT 50.2 % (42-54); IMMATURE GRANULOCYTE ABSOLUTE 0.09 K/uL (0-1); LYMPHOCYTES # (AUTO) 0.5 K/uL (1.0-4.8); LYMPHOCYTES % (AUTO) 3.8 % (21.0-51.0); MEAN CORPUSCULAR HEMOGLOBIN 30.8 pg (27.0-33.0); MEAN CORPUSCULAR HGB CONC 34.1 g/dL (32.0-36.0); MEAN CORPUSCULAR VOLUME 90.3 fL (79-99); MONOCYTES # (AUTO) 0.3 K/uL (0.1-1.0); NEUTROPHILS # (AUTO) 13.3 K/uL (1.8-7.7); NEUTROPHILS % (AUTO) 93.4 % (40.0-77.0); PLATELET COUNT (AUTO) 424 K/uL (130-400); RED BLOOD CELL COUNT(AUTO) 5.56 MIL/uL (4.50-6.20); RED CELL DISTRIBUTION WIDTH 12.5 % (11.0-15.5); WHITE BLOOD COUNT (AUTO) 14.2 K/uL (4.8-10.8)
[2023-12-18 17:13] LABS: CREATININE 1.5 mg/dL (0.5-1.3); POTASSIUM 5.6 mmol/L (3.5-5.1)
[2023-12-18] MEDS: 0.9%NACL 1000ML 1,000 ML IV ONE ×2 (17:20→20:10)
[2023-12-18 17:31] LABS: ABG BASE EXCESS -16.1 mmol/L (-2.0-3.0); ABG HCO3 9.5 mmol/L (21.0-28.0); ABG OXYGEN SATURATION 96.3 % (95.0-99.0); ABG PCO2 24 mmHg (35-48); ABG PH 7.225 (7.35-7.450); PO2, ARTERIAL BG 96.5 mmHg (83.0-108.0); VENT MODE, BG RA (ROOM AIR)
[2023-12-18] MEDS: 0.9%NACL 1000ML 1,000 ML IV SCH ×2 (18:00→20:10)
[2023-12-18] MEDS: INSULIN HUMULIN R 100 UNIT/ML 3ML IV ONE (18:16)
[2023-12-18] MEDS ORDERED: D5W-1/2 NS/20MEQ KCL 1,000 ML IV SCH ×2 (18:30→20:00)
[2023-12-18] MEDS ORDERED: MANNITOL 20% 500 ML IV.SOLN IV SCH (18:30)
[2023-12-18] MEDS ORDERED: MAGNESIUM 2GM PREMIX 50ML 50 ML IV SCH ×3 (18:30→20:00)
[2023-12-18] MEDS ORDERED: POTASSIUM CHLORIDE 10MEQ/100ML 100 ML IV PRN ×3 (18:30→20:00)
[2023-12-18] MEDS ORDERED: PHARMACY COMMUNICATION MISC SCH (19:00)
[2023-12-18] MEDS ORDERED: ACETAMINOPHEN 325 MG TAB PO PRN ×2 (19:30)
[2023-12-18] MEDS ORDERED: DiphenhydrAMINE HCL 50 MG/ML VIAL IV PRN (19:30)
[2023-12-18] MEDS ORDERED: IBUPROFEN 400 MG TABLET PO PRN (19:30)
[2023-12-18] MEDS ORDERED: ZOLPIDEM TARTRATE 5 MG TAB PO PRN (19:30)
[2023-12-18] MEDS ORDERED: HYDRALAZINE 20MG/ML VIAL IV PRN (19:30)
[2023-12-18] MEDS ORDERED: NITROGLYCERIN 0.4 MG SL TAB SL PRN (19:30)
[2023-12-18] MEDS ORDERED: GUAIFENESIN-DM 200/20 MG 10 ML PO PRN (19:30)
[2023-12-18] MEDS ORDERED: MAG/ALUM/SIMETH 30 ML UDCUP PO PRN (19:30)
[2023-12-18] MEDS ORDERED: LACTULOSE 20 GM/30 ML UDCUP PO PRN (19:30)
[2023-12-18] MEDS ORDERED: TRAMADOL HCL 50 MG TABLET PO PRN (19:30)
[2023-12-18] MEDS ORDERED: MAGNESIUM 2GM PREMIX 50ML 50 ML IV PRN (19:30)
[2023-12-18] MEDS ORDERED: ONDANSETRON 4MG INJ IV PRN (19:30)
[2023-12-18] MEDS: INSULIN REGULAR, HUMAN 3ML 100 UNIT in 0.9%NACL 100ML 99 ML IV ONE (19:41)
[2023-12-18] MEDS: D5W-1/2 NS/20MEQ KCL 1,000 ML IV SCH (20:12)
[2023-12-18] MEDS: INSULIN REGULAR, HUMAN 3ML 100 UNIT in 0.9%NACL 100ML 100 ML IV SCH (20:27)
[2023-12-18] MEDS: INSULIN HUMULIN R 100 UNIT/ML 3ML SQ SCH (20:28)
[2023-12-18] MEDS: FAMOTIDINE 20MG VIAL IV SCH (20:29)
[2023-12-18] MEDS: HEPARIN 5,000 UNIT VIAL SQ SCH (20:29)
[2023-12-18] MEDS: INSULIN GLARGINE 100 UNITS/ML 10 ML VIAL SQ SCH (23:13)
[2023-12-19] VITALS (18 sets, daily range): BP systolic 113–142; BP diastolic 62–82; PULSE 81–100; RESP 10–18; O2SAT 96–99
[2023-12-19 00:38] LABS: CREATININE 1.3 mg/dL (0.5-1.3); MAGNESIUM 2.1 mg/dL (1.80-2.40); POTASSIUM 5.2 mmol/L (3.5-5.1)
[2023-12-19 04:49] LABS: BASOPHILS # (AUTO) 0.02 K/uL (0.00-0.20); BASOPHILS % (AUTO) 0.2 % (0.0-5.0); EOSINOPHILS # (AUTO) 0.02 K/uL (0.00-0.70); EOSINOPHILS % (AUTO) 0.2 % (0.0-8.0); HEMATOCRIT 39.9 % (42-54); IMMATURE GRANULOCYTE ABSOLUTE 0.06 K/uL (0-1); LYMPHOCYTES # (AUTO) 1.8 K/uL (1.0-4.8); LYMPHOCYTES % (AUTO) 14.5 % (21.0-51.0); MEAN CORPUSCULAR HEMOGLOBIN 31.2 pg (27.0-33.0); MEAN CORPUSCULAR HGB CONC 34.8 g/dL (32.0-36.0); MEAN CORPUSCULAR VOLUME 89.7 fL (79-99); MONOCYTES # (AUTO) 1.2 K/uL (0.1-1.0); MONOCYTES % (AUTO) 9.5 % (3.0-13.0); NEUTROPHILS # (AUTO) 9.3 K/uL (1.8-7.7); NEUTROPHILS % (AUTO) 75.1 % (40.0-77.0); PLATELET COUNT (AUTO) 358 K/uL (130-400); RED BLOOD CELL COUNT(AUTO) 4.45 MIL/uL (4.50-6.20); RED CELL DISTRIBUTION WIDTH 12.9 % (11.0-15.5); WHITE BLOOD COUNT (AUTO) 12.3 K/uL (4.8-10.8)
[2023-12-19 04:50] LABS: BILIRUBIN,DIRECT 0.3 mg/dL (0.0-0.3); CREATININE 1.2 mg/dL (0.5-1.3); POTASSIUM 4.7 mmol/L (3.5-5.1)
[2023-12-19] MEDS: INSULIN HUMULIN R 100 UNIT/ML 3ML SQ SCH (07:30)
[2023-12-19 09:18] LABS: AMPHET/METH SCREEN,URINE NEGATIVE (NEGATIVE); BARBITURATE SCREEN, URINE NEGATIVE (NEGATIVE); BENZODIAZEPINES SCREEN,URINE NEGATIVE (NEGATIVE); CANNABINOID SCREEN,URINE NEGATIVE (NEGATIVE); COCAINE SCREEN,URINE NEGATIVE (NEGATIVE); OPIATE SCREEN,URINE NEGATIVE (NEGATIVE); PHENCYCLIDINE SCREEN,URINE NEGATIVE (NEGATIVE)
[2023-12-19 09:23] LABS: APPEARANCE,URINE CLEAR (CLEAR); BILIRUBIN,URINE NEGATIVE (NEGATIVE); COLOR,URINE LIGHT-YELLOW (YELLOW); GLUCOSE, URINE (UA) >=1000 mg/dL (NEGATIVE); KETONES,URINE 40 mg/dL (NEGATIVE); LEUKOCYTE ESTERASE ,URINE NEGATIVE Leu/uL (NEGATIVE); MUCUS,URINE RARE LPF (None Seen); NITRATE,URINE NEGATIVE (NEGATIVE); OCCULT BLOOD,URINE NEGATIVE (NEGATIVE); PH,URINE 5.5 (5.0-8.0); PROTEIN,URINE NEGATIVE (NEGATIVE); RBC,URINE 0-1 /HPF (0-1); SQUAMOUS EPITHELIAL CELL,UR RARE /HPF (0-2); UROBILINOGEN,URINE 0.2 mg/dL (0.2-1.0)
[2023-12-19] MEDS: 0.9%NACL 1000ML 1,000 ML IV SCH (11:00)
[2023-12-19] MEDS ORDERED: POTASSIUM CHLORIDE 20MEQ/100ML 100 ML IV PRN ×4 (11:00→11:30)
[2023-12-19] MEDS ORDERED: PHARMACY COMMUNICATION MISC SCH (12:30)
[2023-12-19] MEDS: INSULIN HUMULIN SQ SCH (17:29)
[2023-12-19] MEDS: FAMOTIDINE 20MG TAB PO SCH (19:46)
[2023-12-20 03:00] VITALS: BP 121/74; PULSE 75; RESP 14
[2023-12-20 04:23] LABS: BASOPHILS # (AUTO) 0.02 K/uL (0.00-0.20); BASOPHILS % (AUTO) 0.3 % (0.0-5.0); EOSINOPHILS # (AUTO) 0.16 K/uL (0.00-0.70); EOSINOPHILS % (AUTO) 2.7 % (0.0-8.0); HEMATOCRIT 37.4 % (42-54); IMMATURE GRANULOCYTE ABSOLUTE 0.01 K/uL (0-1); LYMPHOCYTES # (AUTO) 1.6 K/uL (1.0-4.8); LYMPHOCYTES % (AUTO) 27.1 % (21.0-51.0); MEAN CORPUSCULAR HGB CONC 34.8 g/dL (32.0-36.0); MONOCYTES # (AUTO) 0.6 K/uL (0.1-1.0); MONOCYTES % (AUTO) 10.6 % (3.0-13.0); NEUTROPHILS # (AUTO) 3.4 K/uL (1.8-7.7); NEUTROPHILS % (AUTO) 59.1 % (40.0-77.0); PLATELET COUNT (AUTO) 248 K/uL (130-400); RED CELL DISTRIBUTION WIDTH 12.9 % (11.0-15.5); WHITE BLOOD COUNT (AUTO) 5.8 K/uL (4.8-10.8)
[2023-12-20 04:40] LABS: CREATININE 0.8 mg/dL (0.5-1.3); MAGNESIUM 1.7 mg/dL (1.80-2.40); POTASSIUM 3.4 mmol/L (3.5-5.1)
[2023-12-20] MEDS: KCL 20 MEQ ERTAB PO PRN (04:59)
[2023-12-20] MEDS: MAGNESIUM 2GM PREMIX 50ML 50 ML IV PRN (04:59)
[2023-12-20] MEDS: POTASSIUM CHLORIDE 10% ELIXIR 20 MEQ/15 ML UDCUP PO PRN (07:55)
[2023-12-20] MEDS: ENOXAPARIN SODIUM 40 MG/0.4 ML SYRINGE SQ SCH (07:56)
[2023-12-20 08:00] VITALS: BP 130/79; PULSE 82; RESP 20; O2SAT 99
[2023-12-20 12:00] VITALS: BP 129/79; PULSE 76; RESP 18
== END 2023-12-20 14:25 | disposition home or self-care (01) | DRG 638 ==
LOC: EDH 16:15 → EDHIP 16:16 → 2CH 23:00 → 3CH 12-19 14:20
PROVIDERS: ADMIT Hospitalist; ATTEND Hospitalist
DX: E10.10 Type 1 diabetes mellitus with ketoacidosis without coma (principal); E87.1 Hypo-osmolality and hyponatremia; N17.9 Acute kidney failure, unspecified; I10 Essential (primary) hypertension; E86.0 Dehydration; E87.5 Hyperkalemia; E83.51 Hypocalcemia; E87.8 Other disorders of electrolyte and fluid balance, not elsewhere classified; E83.42 Hypomagnesemia; D64.9 Anemia, unspecified; D72.829 Elevated white blood cell count, unspecified; E78.5 Hyperlipidemia, unspecified; E86.1 Hypovolemia; Z79.4 Long term (current) use of insulin; Z90.49 Acquired absence of other specified parts of digestive tract; Z79.899 Other long term (current) drug therapy
CPT/HCPCS: 36415; 36600; 71045; 80048; 80076; 80305; 81001; 82010; 82140; 82550; 82803; 82948; 83036; 83605; 83735; 83880; 84100; 84145; 85025; 96372; 96374; 96375; 96376; 99291; G0378; J1644; J1650; J1815; J3475; J3480; J3490